=== PATIENT | female | born 1955 | race Caucasian/White ===

== ENCOUNTER 2017-05-14 12:59 | Emergency (ER) | payer OTHER ==
[2017-05-14 13:43] LABS: PLATELET COUNT 330 10^3/uL (150-400)
[2017-05-14] MEDS ORDERED: ACETAMINOPHEN 500 MG TAB PO ONE ×2 (14:26→15:11)
[2017-05-14] MEDS ORDERED: NS 1,000 ML IV ONE ×2 (14:26→15:11)
--- NOTE | 2017-05-14 14:26 | EDPHY ---
H & P Time Seen by Provider: 05/14/17 14:03 HPI/ROS: CHIEF COMPLAINT: Head pressure HISTORY OF PRESENT ILLNESS: 62-year-old female was at work today when she developed a relatively abrupt onset of head pressure. She describes 4/10 pressure with some tingling in a bandlike distribution across her head. There is an area pulsating sensation over the left parietal area. Discomfort was at its maximum approximately 10-15 minutes after it started. She was able to walk to a [facility] and obtain some baby aspirin which she took. This helped her discomfort somewhat. Several hours later, the discomfort had returned and she went to urgent care and was referred to the emergency department. Currently she states the pressure is about A 5/10. She has not had symptoms like this similarly in the past. Patient denies any nausea or vomiting, she denies any numbness, tingling, weakness, word-finding difficulty, visual complaints. No double vision. No scotomata. No history of migraines. No head trauma. Patient is otherwise been well. No recent cold, cough, URI symptoms. REVIEW OF SYSTEMS: Aside from elements discussed in the HPI, a comprehensive 10-point review of systems was reviewed and is negative. PAST MEDICAL HISTORY: Hypercholesterolemia, hypothyroidism SOCIAL HISTORY: Nonsmoker, rare alcohol, works at [employer] VITAL SIGNS Reviewed by me. GENERAL: Well-developed, well-nourished, conversant, alert, looks well. Reports some tingling/ pulsing on the left parietal region. HEENT: Atraumatic. Scalp is slightly tender to palpation. No rash visualized. Eyes: PERRL, EOMI, no nystagmus. No icterus. No injection. Mouth: moist mucous membranes. No erythema or lesions. Neck: No meningitis. Nontender to palpation. No adenopathy. Negative Kernig's. Negative Brudzinski's. No meningismus. LUNGS: Clear to auscultation bilaterally, no wheezes, rhonchi or rales. CARDIAC: Regular rate and rhythm, no rubs, murmurs or gallops. ABDOMEN: Soft, nontender, nondistended, bowel sounds normal. BACK: No CVA tenderness. EXTREMITIES: No trauma. No edema. Range of motion is normal throughout. NEURO: Alert and oriented, cranial nerves II through XII are intact. Motor strength 5 over 5 in all major muscle groups. Sensation intact to light touch. Normal gait. SKIN: Warm and dry, no rash. PSYCHIATRIC: Normal mentation, no agitation. Smoking Status: Former smoker Constitutional: Initial Vital Signs Heart Rate 68 05/14/17 13:15 Respiratory Rate 18 05/14/17 13:15 Blood Pressure 163/90 H 05/14/17 13:15 O2 Sat (%) 96 05/14/17 13:15 O2 Delivery Mode Room Air O2 (L/minute) 36.6 Allergies/Adverse Reactions: Sulfa (Sulfonamide Antibiotics) Allergy (Mild, Verified 05/09/10 08:37) Home Medications: Medication Instructions Recorded LEVOTHYROXINE SODIUM 05/09/10 Atorvastatin Calcium 05/14/17 Omeprazole 05/14/17 Medical Decision Making - Diagnostics Imaging Results: Imaging Impressions Head CT 05/14/17 13:38 Impression: 1. No intracranial abnormality seen. 2. Incidental mucous retention cyst inferior left maxillary sinus. If symptoms worsen, additional imaging may be necessary. Findings discussed with Daniel Sanabria M.D. at 14:44 hour, 05/14/2017. Imaging: Discussed imaging studies w/ at home independent call center agent Radiologist, I viewed and interpreted images myself ED Course/Re-evaluation: 62-year-old female presenting with the relatively sudden onset of head pressure. She is neurologically intact. She looks well. She denies pain but describes the sensation as pressure. There was a area of tingling on her scalp. No rash was noted. Patient's evaluation including head CT was negative. She is feeling better with Tylenol. On re-examination she has no further complaints. We held a long discussion regarding her presenting complaints and the workup so far. She was advised to seek care if her symptoms should change or developed associated symptoms or worsen in any way. At this point I think she is safe to be discharged with a diagnosis of unspecified headache and will treat her with symptomatic care. Differential Diagnosis: After history was obtained, and the physical exam performed, a differential for headache was considered including, but not limited to, subarachnoid hemorrhage, migraine headache, tension headache and infectious causes such as meningitis, sinusitis, encephalitis. - Data Points Laboratory Results: Laboratory Results 05/14/17 13:30 05/14/17 13:30 05/14/17 05/14/17 13:30 13:30 WBC 9.77 10^3/uL H 10^3/uL (3.80-9.50) RBC 4.94 10^6/uL 10^6/uL (4.18-5.33) Hgb 15.2 g/dL g/dL (12.6-16.3) Hct 45.4 % % (38.0-47.0) MCV 91.9 fL fL (81.5-99.8) MCH 30.8 pg pg (27.9-34.1) MCHC 33.5 g/dL g/dL (32.4-36.7) RDW 12.8 % % (11.5-15.2) Plt Count 330 10^3/uL 10^3/uL (150-400) MPV 9.7 fL fL (8.7-11.7) Neut % (Auto) 66.4 % % (39.3-74.2) Lymph % (Auto) 25.2 % % (15.0-45.0) [place] % (Auto) 6.2 % % (4.5-13.0) Eos % (Auto) 1.1 % % (0.6-7.6) Baso % (Auto) 0.7 % % (0.3-1.7) Nucleat RBC Rel Count 0.0 % % (0.0-0.2) Absolute Neuts (auto) 6.48 10^3/uL 10^3/uL (1.70-6.50) Absolute Lymphs (auto) 2.46 10^3/uL 10^3/uL (1.00-3.00) Absolute Monos (auto) 0.61 10^3/uL 10^3/uL (0.30-0.80) Absolute Eos (auto) 0.11 10^3/uL 10^3/uL (0.03-0.40) Absolute Basos (auto) 0.07 10^3/uL 10^3/uL (0.02-0.10) Absolute Nucleated RBC 0.00 10^3/uL 10^3/uL (0-0.01) Immature Gran % 0.4 % % (0.0-1.1) Immature Gran # 0.04 10^3/uL 10^3/uL (0.00-0.10) Sodium 142 mEq/L mEq/L (135-145) Potassium 4.2 mEq/L mEq/L (3.5-5.2) Chloride 104 mEq/L mEq/L (97-110) Carbon Dioxide 27 mEq/l mEq/l (22-31) Anion Gap 11 mEq/L mEq/L (8-16) BUN 15 mg/dL mg/dL (7-23) Creatinine 0.7 mg/dL mg/dL (0.6-1.0) Estimated GFR > 60 Glucose 84 mg/dL mg/dL (70-100) Calcium 10.0 mg/dL mg/dL (8.5-10.4) Medications Given: Discontinued Medications Acetaminophen (Tylenol) 1,000 mg PO EDNOW ONE Stop: 05/14/17 14:27 Last Admin: 05/14/17 15:29 Dose: 1,000 mg Sodium Chloride (Ns) 1,000 mls @ 0 mls/hr IV ONCE ONE; Wide Open PRN Reason: Protocol Stop: 05/14/17 14:27 Last Admin: 05/14/17 15:28 Dose: 1,000 mls Departure - Departure Disposition: Home, Routine, Self-Care Clinical Impression: Pressure in head Condition: Good Instructions: Acute Headache (ED) Additional Instructions: Okay to take Tylenol or ibuprofen as needed for your head pressure. Drink plenty of fluids and get plenty of rest. Please follow up with primary care physician if her symptoms are worsening or new symptoms developed. You may return to the emergency department at any point if you are concerned regarding severe headache, nausea, vomiting, numbness or tingling in your arms or legs, or other concerns. Referrals: SHERMAN BARBOSA [Other] - As per Instructions
[2017-05-14 15:31] VITALS: RESP 16
[2017-05-14 16:53] VITALS: BP 135/70; PULSE 68; TEMP 97.9; O2SAT 97
== END 2017-05-14 16:53 | disposition home or self-care (01) ==
DX: R68.89 Other general symptoms and signs (principal); E86.9 Volume depletion, unspecified; Z87.891 Personal history of nicotine dependence